=== PATIENT | female | born 1950 | race Caucasian/White ===

== ENCOUNTER 2016-11-23 07:52 | Emergency (ER) | payer BC, MEDICARE ==
[~2016-11-23] VITALS: Ht 167.6 cm; Wt 63.5 kg
[~2016-11-23 07:52] MED LIST: ACET500T33 PO; AMLO10TA4 PO; ASPI-482 PO; ATEN25TA PO; ATOR40TA PO; CALC1TAB75 PO; CLOP75TA PO; OMEG1CAP38 PO; VENL75CA PO
[2016-11-23 08:05] VITALS: BP 148/77
--- NOTE | 2016-11-23 08:16 | PHYS DOC ---
Past Medical History Past Medical History: Depression, High Cholesterol, Hypertension, [place] Past Surgical History: Cholecystectomy Alcohol Use: Rarely Drug Use: None Adult General Chief Complaint Chief Complaint: NOSEBLEED HPI HPI Patient is a 66 year old female who presents with. She states that around 2 AM she woke up with bleeding out of her right near. She states she's been holding pressure at a stop for a brief amount time it started bleeding again. She states she is on Plavix. She denies any lightheadedness dizziness nausea or vomiting. She states she normally does not have any troubles with nosebleeds. Review of Systems Review of Systems Constitutional: Denies fever or chills [] Eyes: Denies change in visual acuity, redness, or eye pain [] HENT: Denies nasal congestion or sore throat, positive for nosebleed Respiratory: Denies cough or shortness of breath [] Cardiovascular: No additional information not addressed in HPI [] GI: Denies abdominal pain, nausea, vomiting, bloody stools or diarrhea [] : Denies dysuria or hematuria [] Musculoskeletal: Denies back pain or joint pain [] Integument: Denies rash or skin lesions [] Neurologic: Denies headache, focal weakness or sensory changes [] Endocrine: Denies polyuria or polydipsia [] Current Medications Current Medications Current Medications Medications (Trade) Dose Ordered Sig/Gita Start Time Stop Time Status Last Admin Dose Admin Oxymetazoline HCl (Afrin) 2 spray 1X ONCE 11/23/16 08:30 11/23/16 08:31 DC 11/23/16 08:31 2 SPRAY Allergies Allergies Allergies Coded Allergies Type Severity Reaction Last Updated Verified povidone-iodine Allergy Intermediate 04/05/16 Yes soap Allergy Intermediate 04/05/16 Yes Physical Exam Physical Exam Constitutional: Well developed, well nourished, no acute distress, non-toxic appearance. [] HENT: Normocephalic, atraumatic, bilateral external ears normal, oropharynx moist, no oral exudates, nose normal., Blood in the right naris, unable to visualize the bleeding is coming from. Eyes: PERRLA, EOMI, conjunctiva normal, no discharge. [] Neck: Normal range of motion, no tenderness, supple, no stridor. [] Cardiovascular:Heart rate regular rhythm, no murmur [] Lungs & Thorax: Bilateral breath sounds clear to auscultation [] Abdomen: Bowel sounds normal, soft, no tenderness, no masses, no pulsatile masses. [] Skin: Warm, dry, no erythema, no rash. [] Back: No tenderness, no CVA tenderness. [] Extremities: No tenderness, no cyanosis, no clubbing, ROM intact, no edema. [] Neurologic: Alert and oriented X 3, normal motor function, normal sensory function, no focal deficits noted. [] Psychologic: Affect normal, judgement normal, mood normal. [] Current Patient Data Vital Signs Vital Signs Date Time Temp Pulse Resp B/P Pulse Ox O2 Delivery O2 Flow Rate FiO2 11/23/16 08:05 97.4 66 20 98 Room Air 97.4 EKG EKG [] Radiology/Procedures Radiology/Procedures [] Impressions: Epistasis Course & Med Decision Making Course & Med Decision Making Pertinent Labs and Imaging studies reviewed. (See chart for details) Presented with a nosebleed she use Afrin help pressure however was still bleeding in the right scruggs. We do not have any posterior Rhino Rockets and only have anterior once. I placed an anterior 1 however was still bleeding around this and the patient was not comfortable with it and requested it be removed. I watched the patient for approximate 4-1/2 hours and then was able to get a hold at ENT clinic and spoke with Dr. Sahu who is okay with the patient coming to clinic and being evaluated there. The patient's agreeable plan being discharged in stable condition at this time to follow-up with them. I instructed the to take her immediately to emergency department if the bleeding gets worse prior to arriving at the clinic. Dragon Disclaimer Dragon Disclaimer This electronic medical record was generated, in whole or in part, using a voice recognition dictation system. Departure Departure Impression: Primary Impression: Bleeding nose Disposition: 01 HOME, SELF-CARE Condition: STABLE Referrals: KIM MCGREGOR (PCP) Patient Instructions: Nosebleed Additional Instructions: You have an appointment at the [facility] ENT clinic which is on the third floor across the street from the [place] parking garage. Check-in with the ENT clinic and I spoke with guarding or vciki. KEVIN WATKINS MD Nov 23, 2016 08:16
[2016-11-23] MEDS ORDERED: OXYMETAZOLINE 0.05% NASAL SPRAY 30ML BOTTLE. NS ONE (08:30)
== END 2016-11-23 12:58 | disposition home or self-care (01) ==
LOC: ER 07:52
DX: R04.0 Epistaxis (principal); E78.00 Pure hypercholesterolemia, unspecified; I10 Essential (primary) hypertension; I25.2 Old myocardial infarction; Z79.02 Long term (current) use of antithrombotics/antiplatelets; Z88.8 Allergy status to other drugs, medicaments and biological substances; Z91.048 Other nonmedicinal substance allergy status
CPT/HCPCS: 30901; 99284-25

== ENCOUNTER → 2017-09-28 | Outpatient (CLI) | payer MEDICARE, OTHER | END | disposition home or self-care (01) | LOC: ECHO 07:49 | DX: I25.10 Atherosclerotic heart disease of native coronary artery without angina pectoris (principal); I37.1 Nonrheumatic pulmonary valve insufficiency; I31.3 Pericardial effusion (noninflammatory) | CPT/HCPCS: 93306 ==

== ENCOUNTER → 2018-06-25 | Outpatient (CLI) | payer MEDICARE ==
--- NOTE | 2018-06-25 10:11 | RAD ---
MR#: [id number] Date of Study: 06/25/2018 Ordering Physician: EMMANUELLE BONILLA, Referring Physician: EMMANUELLE BONILAL, Tech: Igor Bai MBA, RDMS, RVT, RDCS, RTR APPROVED REPORT Patient Location: OUT-PATIENT Indications PAD VELOCITY AND DOPPLER WAVEFORM ANALYSIS RIGHT cm/secWaveformSeverity LEFT cm/secWaveform Severity dCFA 146.0TriphasicdCFA 167.0Triphasic Prof Fem Art. 62.0TriphasicProf Fem Art. 77.0Triphasic Fem Art Prox. 128.0TriphasicFem Art Prox. 153.0Triphasic Fem Art Mid. 90.0TriphasicFem Art Mid. 111.0Triphasic Fem Art Dist. 90.0BiphasicFem Art Dist. 131.0Biphasic Pop Art(Fossa) 72.0BiphasicPop Art([place]) 99.0Biphasic PAINT POURER Prox. 86.0BiphasicPTA Prox. 79.0Biphasic PAINT POURER Dist. 81.0BiphasicPTA Dist. 60.0Biphasic Per Art Mid. 48.0BiphasicPer Art Mid. 63.0Biphasic KALPANA Prox. 54.0BiphasicATA Prox. 74.0Biphasic DPA 38BiphasicDPA 95Biphasic Findings Grayscale images of the bilateral lower extremity arterial vessels reveal minimal intimal hyperplasia and mild diffuse atherosclerosis. Spectral waveforms and color Doppler throughout the arterial syste m do not reveal any evidence of high-grade stenosis. Velocities are grossly within normal limits thro ughout the arterial tree. Spectral waveforms are mostly triphasic and biphasic. Critical Notification Critical Value: No <Conclusion> No significant lower extremity arterial stenosis by ultrasound criteria Signed by : Varghese Cheng, Electronically Approved : 06/25/2018 10:09:33
== END | disposition home or self-care (01) ==
LOC: US 06:27
PROVIDERS: ATTEND Internal Medicine Cardiovascular Disease
DX: I70.293 Other atherosclerosis of native arteries of extremities, bilateral legs (principal); I25.10 Atherosclerotic heart disease of native coronary artery without angina pectoris; I10 Essential (primary) hypertension; E78.00 Pure hypercholesterolemia, unspecified; I25.2 Old myocardial infarction; Z88.8 Allergy status to other drugs, medicaments and biological substances
CPT/HCPCS: 93925

== ENCOUNTER → 2018-06-28 | Outpatient (CLI) | payer MEDICARE, OTHER ==
[~2018-06-28] MED LIST changes: +REGADENOSON 0.4 MG/5 ML DISP.SYRIN. IV ONE
--- NOTE | 2018-06-28 10:52 | RAD ---
MR#: [id number] Date of Study: 06/28/2018 Ordering Physician: EMMANUELLE BONILLA, Referring Physician: SYDNI PICKARD Tech: ROSANA Deal APPROVED REPORT Test Type: Pharmacological Stress Nurse/Tech: Kristal Estrada R.N. Test Indications: CAD, Stents Cardiac History: Family history, Hypertension, [place], 3 stents Medications: See Electronic Medical Record Medical History: See Electronic Medical Record Resting ECG: NSR with rare PVC Resting Heart Rate: 61 bpm Resting Blood Pressure: 159/75mmHg Pretest Chest Pain: No chest pain Nurse/Tech Notes S1S2, lungs sound clear Consent: The procedure was explained to the patient in lay terms. Informed consent was witnessed. Gigi eout was entered into [employer]. History and Stress Test performed by Kristal Estrada R.N. Pharm. Details Pharmacologic stress testing was performed using 0.4mg per 5ml of regadenoson given intravenously ove r 7-10 seconds. Stress Symptoms Dyspnea POST EXERCISE Reason for Termination: Infusion complete Target HR: 130 Max HR: 99 bpm Max Blood Pressure: 158/63mmHg Blood Pressure response to exercise: Normal blood pressure response during stress. Chest Pain: No. Arrhythmia: No. ST Change: No. INTERPRETATION Stress EKG Conclusion: Baseline EKG showed sinus rhythm. No ischemic changes at peak stress. Few PVC 's without any significant arrhythmias. Imaging Protocol IMAGE PROTOCOL: Rest Tc-99m/stress Tc-99m 1 day Rest: Stress: Viability: Radiopharm.Tc99m YatbbzwkmZf70f Sestamibi Dose12.5mCi 32mCi Duration 17min. 13min. Img Date 06/28/2018 06/28/2018 Inj-Img Bqei48igx. 60min. Rest Admin Site:IV - Right HandAdministrator:ROSANA Deal Stress Admin Site: IV - Right HandAdministrator: ROSANA Deal STRESS DATA End Diast. Vol.58.0mlLVEDV index BSA32.0ml End Syst. Vol.15.0mlLVESV index BSA8.0ml Myocardial Mass99.0gEject. Ftxghzia60.0% Stress Scores Regional WT1.00Summed WT7.00 Regional WM0.00Summed WM2.00 LV Perfusion Scintigraphic images showed very small reversible defect involving the apical wall consistent with is chemia. Wall Motion Normal left ventricle systolic function with ejection fraction calculated at 74%. LV Perf. Quant 17 Seg. SSS2.00 17 Seg. SRS1.00 17 Seg. SDS1.00 Stress Defect Extent (% LAD)0.00Rest Defect Extent (% LAD)0.00Rev. Defect Extent (% LAD)0.00 Stress Defect Extent (% LCX) 5.00Rest Defect Extent (% LCX)7.50Rev. Defect Extent (% LCX)0.00 Stress Defect Extent (% RCA)0.00Rest Defect Extent (% RCA)0.00Rev. Defect Extent (% RCA)0.00 Stress Defect Extent (% LAURA)0.90Rest Defect Extent (% LAURA)1.30Rev. Defect Extent (% LAURA)0.00 Conclusion 1. Regadenoson cardioisotope stress test showed very small amount of apical wall ischemia. 2. Normal left ventricular systolic function with ejection fraction calculated at 74%. 3. Low risk for cardiac events. Signed by : Emmanuelle Bonilla, Electronically Approved : 06/28/2018 10:51:16
== END | disposition home or self-care (01) ==
LOC: NM 12:12
PROVIDERS: ATTEND Internal Medicine Cardiovascular Disease
DX: I25.10 Atherosclerotic heart disease of native coronary artery without angina pectoris (principal); I10 Essential (primary) hypertension; Z82.49 Family history of ischemic heart disease and other diseases of the circulatory system
CPT/HCPCS: 78452; 93017; 96374; 96375; 96376; A9500; J2785

== ENCOUNTER 2018-07-16 06:21 | Outpatient (CLI) | payer MEDICARE, OTHER ==
[~2018-07-16] VITALS: Ht 167.6 cm; Wt 72.6 kg
[2018-07-16] VITALS (10 sets, daily range): BP systolic 106–144; BP diastolic 56–71
[~2018-07-16 06:21] MED LIST changes: -REGADENOSON 0.4 MG/5 ML DISP.SYRIN. IV ONE
[2018-07-16] MEDS ORDERED: LIDOCAINE 1% PF 2 ML VIAL. ONE (07:07)
[2018-07-16] MEDS ORDERED: IODIXANOL 320 MG/ML 100 ML VIAL. ONE (07:07)
[2018-07-16 07:17] LABS: HEMATOCRIT 45.1 % (36.0-47.0); HEMOGLOBIN 15.4 g/dL (12.0-15.5); RED BLOOD COUNT 5.06 x10^6/uL (3.50-5.40); RED CELL DISTRIBUTION WIDTH 14.4 % (11.5-14.5); WHITE BLOOD COUNT 9.8 x10^3/uL (4.0-11.0)
[2018-07-16 07:19] LABS: CALCIUM 9.4 mg/dL (8.5-10.1); CREATININE 0.8 mg/dL (0.6-1.0); GFR 71.5; POTASSIUM 3.7 mmol/L (3.5-5.1)
[2018-07-16 07:41] LABS: PROTHROMBIN TIME PATIENT 11.8 SEC (11.7-14.0)
[2018-07-16] MEDS ORDERED: fentaNYL PF VIAL 100 MCG/2 ML VIAL ONE (08:09)
[2018-07-16] MEDS ORDERED: MIDAZOLAM HCL/PF 2 MG/2 ML VIAL. ONE (08:10)
[2018-07-16] MEDS ORDERED: HEPARIN for IV BOLUS 10,000 UNIT/10 ML VIAL. ONE (08:10)
[2018-07-16] MEDS ORDERED: NITROGLYCERIN 200 MCG/2 ML SYRINGE FOR CATH/VASC LAB. ONE (08:10)
[2018-07-16] MEDS ORDERED: VERAPAMIL 5 MG/2 ML VIAL. ONE (08:10)
[2018-07-16] MEDS ORDERED: CONTRAST GIVEN. MC PRN (08:45)
[2018-07-16] MEDS ORDERED: HEPARIN for IV BOLUS 10,000 UNIT/10 ML VIAL. IART ONE (08:45)
[2018-07-16] MEDS ORDERED: VERAPAMIL 5 MG/2 ML VIAL. IART ONE (08:45)
[2018-07-16] MEDS ORDERED: fentaNYL PF VIAL 100 MCG/2 ML VIAL IV ONE (08:45)
[2018-07-16] MEDS ORDERED: LIDOCAINE 1% PF 2 ML VIAL. INJ ONE (08:45)
[2018-07-16] MEDS ORDERED: MIDAZOLAM HCL/PF 2 MG/2 ML VIAL. IV ONE (08:45)
[2018-07-16] MEDS ORDERED: IODIXANOL 320 MG/ML 100 ML VIAL. IART ONE (08:45)
[2018-07-16] MEDS ORDERED: NITROGLYCERIN 200 MCG/2 ML SYRINGE FOR CATH/VASC LAB. IART ONE (08:45)
--- NOTE | 2018-07-16 09:23 | PDOC ---
MODERATE SEDATION ASSESSMENT RISKS/ALTERNATIVES Risks/Alternatives Risks and alternatives of this type of sedation and procedure discussed with: RISK/ALTERNATIVES: Patient H & P ON CHART H & P H & P on chart and reviewed for co-morbid conditions and appropriate labs. H&P ON CHART: Yes STATUS PREG STATUS ASSESSED: N/A MEDS/ALLERGIES REVIEWED Meds/Allergies Reviewed Medications and Allergies including time and route of recently administered narcotics and sedatives. MEDS/ALLERGIES REVIEWED: Yes ASA RATING ASA RATING: II AIRWAY ASSESSMENT Airway Assessment Airway patency, oral function limitations, presence of caps, crowns, dentures, partials, and ability to extend neck assessed. AIRWAY ASSESSMENT: Yes MALLAMPATI SCORE MALLAMPATI SCORE: II PRE-SEDATION ASSESSMENT PRE-SEDATION ASSESSMENT: Yes EMMANUELLE BONILLA MD Jul 16, 2018 09:23
--- NOTE | 2018-07-16 09:29 | CARD ---
MR#: [id number] Date of Study: 07/16/2018 Ordering Physician: EMMANUELLE BONILLA Referring Physician: EMMANUELLE BONILLA Tech: RT iNck (R) APPROVED REPORT Technologist: Amber Bangura RT (R) Nurse: Eli Cade R.N. Procedure(s) performed: Left heart catheterization, selective coronary angiography and left ventricul ography via right transradial approach Moderate sedation: 22 minutes INDICATION The indication(s) include : Unstable angina, positive stress test. PROCEDURE NARRATIVE After explaining the risks, benefits and alternative options, informed consent was obtained from aranza ent. Patient was brought to the cardiac Instrument Maker Apprentice and right wrist was prepped and draped in the usual fashion after confirming a positive modified Eder's test. Arterial access was obtained in the righ t radial artery and a 6 [place] sheath was inserted. 6 [place] Piotr catheter was used to perform benedict ective angiography of the left and right coronary arteries. 6 [place] pigtail catheter was used to pe rform left ventriculography. Patient tolerated the procedure well. Hemostasis was achieved using TR band. There were no immediate complications. The following findings were noted. FINDINGS 1. Hemodynamics: Left ventricular end-diastolic pressure of 16 mmHg. pullback gradient of 10 mmHg ac ross the aortic valve. 2. Left ventriculography: Normal left ventricle systolic function with ejection fraction estimated at 60%. No significant mitral regurgitation seen. 3. Coronary angiography: a. The left main coronary artery arose from the left sinus of Valsalva, gave rise to the left anteri or descending and left circumflex arteries and did not show any significant stenosis. b. The left anterior descending artery did not show any significant stenosis. c. The left circumflex artery showed widely patent previously placed stent in a large obtuse margina l branch. d. The right coronary artery arose from the right sinus of Valsalva and did not show any significant stenosis. Conclusion 1. No significant coronary artery disease with widely patent previously placed stent in the obtuse m arginal branch of left circumflex artery 2. Normal left ventricle systolic function with ejection fraction estimated at 60%. Recommendations Medical Therapy Signed by : Emmanuelle Bonilla, Electronically Approved : 07/16/2018 09:28:35
[2018-07-16] MEDS ORDERED: NITROGLYCERIN SUBLINGUAL 0.4 MG BOTTLE OF 25. SL PRN (09:30)
[2018-07-16] MEDS ORDERED: IV 1/2 NORMAL SALINE 1,000 ML IV SCH (09:30)
== END 2018-07-16 11:30 | disposition home or self-care (01) ==
LOC: CCL 06:21
PROVIDERS: ATTEND Internal Medicine Cardiovascular Disease
DX: I20.0 Unstable angina (principal); Z88.8 Allergy status to other drugs, medicaments and biological substances; Z91.048 Other nonmedicinal substance allergy status
CPT/HCPCS: 36415; 80048; 85027; 85610; 93458; 99152; C1769; C1892; J1644; J2250; J3010; J3490; Q9967

== ENCOUNTER → 2019-08-07 | Outpatient (CLI) | payer MEDICARE, OTHER ==
[2018-07-16 11:02] VITALS: BP 113/67
--- NOTE | 2019-08-07 16:33 | CARD ---
MR#: [id number] Date of Study: 08/07/2019 Ordering Physician: EMMANUELLE HERNANDEZ, Referring Physician: Simi PICKARD: Adry Medina APPROVED REPORT EXAM: Two-dimensional and M-mode echocardiogram with Doppler and color Doppler. Other Information Quality : AverageHR: 51bpm INDICATION CAD 2D DIMENSIONS RVDd2.7 (2.9-3.5cm)Left Atrium(2D)3.1 (1.6-4.0cm) IVSd1.2 (0.7-1.1cm)Aortic Root(2D)2.1 (2.0-3.7cm) LVDd3.9 (3.9-5.9cm)LVOT Diameter2.0 (1.8-2.4cm) PWd0.7 (0.7-1.1cm)LVDs2.9 (2.5-4.0cm) FS (%) 25.7 %SV34.4 ml LVEF(%)51.2 (>50%) Aortic Valve AoV Peak Rayray.135.1cm/sAoV VTI31.2cm AO Peak GR.7.3mmHgLVOT Peak Rayray.93.7cm/s AO Mean GR.4mmHgAVA (VMAX)2.20cm2 Mitral Valve MV E Qgoznozb88.7cm/sMV E Peak Gr.4mmHg MV DECEL [id number] A Fiaqzetc758.4cm/s MV E Mean Gr.1mmHgE/A Ratio0.7 Pulmonary Valve PV Peak Qrbjacqt22.5cm/s Tricuspid Valve RAP XUYTQLEN5jjNn Pulmonary Vein S1 Tpbmktac02.5cm/sD2 Etkomfqb55.4cm/s LEFT VENTRICLE The left ventricle is normal size. There is mild septal left ventricular hypertrophy. The left ventri cular systolic function is normal. The Ejection Fraction is 55-60%. There is normal LV segmental wall motion. Transmitral Doppler flow pattern is Grade I-abnormal relaxation pattern. RIGHT VENTRICLE The right ventricle is normal size. The right ventricular systolic function is normal. ATRIA The left atrium size is normal. The right atrium size is normal. The interatrial septum is intact wit h no evidence for an atrial septal defect or patent foramen ovale as noted on 2-D or Doppler imaging. AORTIC VALVE The aortic valve is thickened but opens well. Doppler and Color Flow revealed no significant aortic r egurgitation. There is no significant aortic valvular stenosis. MITRAL VALVE The mitral valve is thickened but opens well. There is no evidence of mitral valve prolapse. There is no mitral valve stenosis. Doppler and Color-flow revealed trace mitral regurgitation. TRICUSPID VALVE The tricuspid valve is not well visualized. Doppler and Color Flow revealed trace tricuspid regurgita tion. There is no tricuspid valve stenosis. PULMONIC VALVE The pulmonic valve is not well visualized. Doppler and Color Flow revealed trace to mild pulmonic eri vular regurgitation. GREAT VESSELS The aortic root is normal in size. The ascending aorta is normal in size. The IVC is normal in size a nd collapses >50% with inspiration. PERICARDIAL EFFUSION There is no pleural effusion. There is no evidence of significant pericardial effusion. Critical Notification Critical Value: No <Conclusion> The left ventricular systolic function is normal. The Ejection Fraction is 55-60%. There is normal LV segmental wall motion. Transmitral Doppler flow pattern is Grade I-abnormal relaxation pattern. Trace mitral regurgitation. Trace tricuspid regurgitation. There is no evidence of significant pericardial effusion. Signed by : Emmanuelle Hernandez, Electronically Approved : 08/07/2019 10:11:07
== END | disposition home or self-care (01) ==
LOC: ECHO 08:21
PROVIDERS: ATTEND Internal Medicine Cardiovascular Disease
DX: I37.1 Nonrheumatic pulmonary valve insufficiency (principal); I11.9 Hypertensive heart disease without heart failure; I25.10 Atherosclerotic heart disease of native coronary artery without angina pectoris
CPT/HCPCS: 93306

== ENCOUNTER → 2020-02-05 | Outpatient (CLI) | payer MEDICARE, OTHER ==
[2018-07-16 11:02] VITALS: BP 113/67
[~2020-02-05] MED LIST changes: +REGADENOSON 0.4 MG/5 ML DISP.SYRIN. IV ONE
--- NOTE | 2020-02-05 12:10 | RAD ---
MR#: [id number] Date of Study: 02/05/2020 Ordering Physician: EMMANUELLE BONILLA Referring Physician: SYDNI PICKARD Tech: RT Lesly Pritchett) (N) APPROVED REPORT Test Type: Pharmacological Stress Nurse/Tech: RT Lesly Pritchett) (N) Cardiac History: stents about 6 years ago Medications: see EHR Medical History: COPD, Hypertension, ex smoker Resting ECG: sinus rhythm Resting Heart Rate: 59 bpm Resting Blood Pressure: 127/71mmHg Nurse/Tech Notes Consent: The procedure was explained to the patient in lay terms. Informed consent was witnessed. Gigi eout was entered into [employer]. History and Stress Test performed by RT Lesly Pritchett) (N) Pharm. Details Pharmacologic stress testing was performed using 0.4mg per 5ml of regadenoson given intravenously ove r 7-10 seconds. POST EXERCISE Reason for Termination: Infusion complete Max HR: 85 bpm Max Blood Pressure: 124/64mmHg INTERPRETATION Stress EKG Conclusion: No acute changes were noted. Imaging Protocol IMAGE PROTOCOL: Rest Tc-99m/stress Tc-99m 1 day Rest: Stress: Viability: Radiopharm.Tc99m MyglugekjAb44o Sestamibi Utuy92fAv 32.4mCi Duration 15min. 10min. Img Date 02/05/2020 02/05/2020 Inj-Img Znmv07jkx. 60min. Rest Admin Site:IV - Right AntecubitalAdministrator:RT Lesly Pritchett)(N) Stress Admin Site: IV - Right AntecubitalAdministrator: RT Lesly Pritchett)(N) STRESS DATA End Diast. Vol.57.0mlAv. Heart Rate59.0bpm End Syst. Vol.5.0mlCO Index BSA0.0L/min Myocardial Ttvk193.0gEject. Yxlybsqd21.0% Stress Rates Pk. Fill Rate3.02EDV/secLVtime Pk. Fill 194.25msec Pk. Empty Rate3.34ESV/secLVtime Pk. Yonka036.97msec 1/3 Pk. Fill1.38EDV/sec Stress Scores Regional WT0.00Summed WT0.00 Regional WM0.00Summed WM0.00 The rest and stress images show normal perfusion, normal contraction and thickening. LV Perf. Quant 17 Seg. SSS0.00 17 Seg. SRS0.00 17 Seg. SDS0.00 Stress Defect Extent (% LAD)0.00Rest Defect Extent (% LAD)0.00Rev. Defect Extent (% LAD)0.00 Stress Defect Extent (% LCX) 0.00Rest Defect Extent (% LCX)0.00Rev. Defect Extent (% LCX)0.00 Stress Defect Extent (% RCA)0.00Rest Defect Extent (% RCA)0.00Rev. Defect Extent (% RCA)0.00 Stress Defect Extent (% LAURA)0.00Rest Defect Extent (% LAURA)0.00Rev. Defect Extent (% LAURA)0.00 Other Information Quality:Good Risk Assessment: Low Risk Conclusion 1. No evidence of EKG changes with stress testing. 2. Normal perfusion at stress/rest. 3. Low risk study. 4. EF > 60%. Signed by : Varghese Cheng, Electronically Approved : 02/05/2020 12:09:55
== END | disposition home or self-care (01) ==
LOC: NM 07:25
PROVIDERS: ATTEND Internal Medicine Cardiovascular Disease
DX: I25.10 Atherosclerotic heart disease of native coronary artery without angina pectoris (principal)
CPT/HCPCS: 78452; 93017; A9500; J2785

== ENCOUNTER → 2020-09-04 | Outpatient (CLI) | payer MEDICARE, OTHER ==
[2018-07-16 11:02] VITALS: BP 113/67
[~2020-09-04] MED LIST changes: +CALC-627 PO; -CALC1TAB75 PO; -REGADENOSON 0.4 MG/5 ML DISP.SYRIN. IV ONE
--- NOTE | 2020-09-04 13:32 | CARD ---
MR#: [id number] Date of Study: 09/04/2020 Ordering Physician: EMMANUELLE HERNANDEZ, Referring Physician: Simi PICKARD: Baljit Kate [facility] APPROVED REPORT EXAM: Two-dimensional and M-mode echocardiogram with Doppler and color Doppler. Other Information Quality : AverageHR: 54bpm Rhythm : NSR, Bradycardia INDICATION Cardiac Disease: CAD 2D DIMENSIONS RVDd2.3 (2.9-3.5cm)Left Atrium(2D)3.1 (1.6-4.0cm) IVSd1.3 (0.7-1.1cm)Aortic Root(2D)3.5 (2.0-3.7cm) LVDd3.8 (3.9-5.9cm)PWd1.3 (0.7-1.1cm) LA Eonszs30 (18-58mL)LVDs2.5 (2.5-4.0cm) FS (%) 34.5 %SV40.3 ml LVEF(%)64.3 (>50%) Aortic Valve AoV Peak Rayray.131.5cm/Jerson Peak GR.6.9mmHg LVOT Peak Rayray.84.5cm/s Mitral Valve MV E Paolktay73.6cm/sMV DECEL DBBI228jx MV A Qehagwhd043.4cm/sE/A Ratio0.8 MV A Gcpbjsgl946mo Pulmonary Valve PV Peak Wmafxmko78.7cm/s Tricuspid Valve TR P. Suaubzgb925bw/sTR Peak Gr.29mmHg Pulmonary Vein S1 Iflahzyb62.7cm/sD2 Yaeqsjes53.5cm/s PVa qvogrexz707cjvr LEFT VENTRICLE The left ventricle is normal size. There is mild concentric left ventricular hypertrophy. The left ve ntricular systolic function is normal. The Ejection Fraction is 60-65%. There is normal LV segmental wall motion. Transmitral Doppler flow pattern is Grade I-abnormal relaxation pattern. RIGHT VENTRICLE The right ventricle is normal size. There is normal right ventricular wall thickness. The right ventr icular systolic function is normal. ATRIA The left atrium size is normal. The right atrium size is normal. The interatrial septum is intact wit h no evidence for an atrial septal defect or patent foramen ovale as noted on 2-D or Doppler imaging. AORTIC VALVE The aortic valve is normal in structure and function. No aortic regurgitation is present. There is no aortic valvular stenosis. There is no aortic valvular vegetation. MITRAL VALVE The mitral valve is normal in structure and function. There is no evidence of mitral valve prolapse. There is no mitral valve stenosis. Doppler and Color-flow revealed trace mitral regurgitation. TRICUSPID VALVE The tricuspid valve is normal in structure and function. Doppler and Color Flow revealed mild tricusp id regurgitation with PAP of 36 mmHg. There is no tricuspid valve prolapse or vegetation. There is no tricuspid valve stenosis. PULMONIC VALVE The pulmonary valve is normal in structure and function. There is no pulmonic valvular regurgitation. There is no pulmonic valvular stenosis. GREAT VESSELS The aortic root is normal in size. The ascending aorta is normal in size. The pulmonary artery is nor mal. The IVC is normal in size and collapses >50% with inspiration. PERICARDIAL EFFUSION There is no pleural effusion. There is no evidence of significant pericardial effusion. Critical Notification Critical Value: No <Conclusion> The left ventricular systolic function is normal. The Ejection Fraction is 60-65%. There is normal LV segmental wall motion. Transmitral Doppler flow pattern is Grade I-abnormal relaxation pattern. Trace mitral regurgitation. Mild tricuspid regurgitation with PAP of 36 mmHg. There is no evidence of significant pericardial effusion. Signed by : Emmanuelle Hernandez, Electronically Approved : 09/04/2020 12:00:47
== END ==
LOC: ECHO 07:55
PROVIDERS: ATTEND Internal Medicine Cardiovascular Disease
DX: I07.1 Rheumatic tricuspid insufficiency (principal); I25.10 Atherosclerotic heart disease of native coronary artery without angina pectoris
CPT/HCPCS: 93306

== ENCOUNTER → 2022-02-09 | Outpatient (CLI) | payer BC, MEDICARE, OTHER ==
[2018-07-16 11:02] VITALS: BP 113/67
[~2022-02-09] MED LIST changes: +REGADENOSON 0.4 MG/5 ML DISP.SYRIN. IV ONE
--- NOTE | 2022-02-09 12:26 | CARD ---
MR#: [id number] Date of Study: 02/09/2022 Ordering Physician: EMMANUELLE BONILLA, Referring Physician: EMMANUELLE BONILLA Tech: Marisol Eddy [facility] APPROVED REPORT EXAM: Two-dimensional and M-mode echocardiogram with Doppler and color Doppler. Other Information Quality : Technically LimitedHR: 55bpm Rhythm : NSR INDICATION Dyspnea RISK FACTORS Hypertension Obesity Hyperlipidemia 2D DIMENSIONS Left Atrium(2D)2.8 (1.6-4.0cm)IVSd1.1 (0.7-1.1cm) Aortic Root(2D)2.6 (2.0-3.7cm)LVDd3.7 (3.9-5.9cm) LVOT Diameter2.3 (1.8-2.4cm)PWd1.1 (0.7-1.1cm) LVDs2.0 (2.5-4.0cm)FS (%) 46.7 % SV45.2 mlLVEF(%)78.9 (>50%) Aortic Valve AoV Peak Rayray.159.9cm/sAoV VTI33.4cm AO Peak GR.10.2mmHgLVOT Peak Rayray.103.9cm/s AO Mean GR.4mmHgAVA (VMAX)2.77cm2 Mitral Valve MV E Qbijsiaq06.4cm/sMV DECEL CESI630so MV A Puiiobit947.5cm/sE/A Ratio0.7 Pulmonary Valve PV Peak Qztilmfs949.2cm/s LEFT VENTRICLE The left ventricle is normal size. There is borderline to mild concentric left ventricular hypertroph y. The left ventricular systolic function is normal. Estimated ejection fraction 60-65%. There is no rmal LV segmental wall motion. Transmitral Doppler flow pattern is Grade I-abnormal relaxation patter n. RIGHT VENTRICLE The right ventricle is normal size. There is normal right ventricular wall thickness. The right ventr icular systolic function is normal. ATRIA The left atrium size is normal. The right atrium size is normal. The interatrial septum is intact wit h no evidence for an atrial septal defect or patent foramen ovale as noted on 2-D or Doppler imaging. AORTIC VALVE The aortic valve is normal in structure and function. Doppler and Color Flow revealed no significant aortic regurgitation. There is no significant aortic valvular stenosis. MITRAL VALVE The mitral valve is normal in structure and function. There is no evidence of mitral valve prolapse. There is no mitral valve stenosis. Doppler and Color Flow revealed no mitral valve regurgitation note d. TRICUSPID VALVE The tricuspid valve is normal in structure and function. Doppler and Color Flow revealed no tricuspid valve regurgitation noted. There is no tricuspid valve stenosis. PULMONIC VALVE The pulmonary valve is normal in structure and function. Doppler and Color Flow revealed no pulmonic valvular regurgitation. GREAT VESSELS The aortic root is normal in size. The ascending aorta is normal in size. The IVC is normal in size a nd collapses >50% with inspiration. PERICARDIAL EFFUSION There is no evidence of significant pericardial effusion. Critical Notification Critical Value: No <Conclusion> The left ventricular systolic function is normal. Estimated ejection fraction 60-65%. There is normal LV segmental wall motion. Transmitral Doppler flow pattern is Grade I-abnormal relaxation pattern. There is no evidence of significant pericardial effusion. Signed by : Emmanuelle Bonilla, Electronically Approved : 02/09/2022 12:25:48
--- NOTE | 2022-02-09 13:04 | RAD ---
MR#: [id number] Date of Study: 02/09/2022 Ordering Physician: EMMANUELLE HERNANDEZ Referring Physician: SYDNI PICKARD Tech: RT Eduin (R) (N) APPROVED REPORT Test Type: Pharmacological Stress Nurse/Tech: Valentina ALEXANDRA Test Indications: CAD Cardiac History: COPD, CAD w/ 3 stents, HTN, ASA daily Medications: See EMR Medical History: See EMR Resting ECG: SR Resting Heart Rate: 66 bpm Resting Blood Pressure: 136/82mmHg Pretest Chest Pain: No chest pain Nurse/Tech Notes Lungs clear, no SOA. S1S2 heart tones, no chest pain. Pharm. Details Pharmacologic stress testing was performed using 0.4mg per 5ml of regadenoson given intravenously ove r 7-10 seconds. Stress Symptoms No chest pain or symptoms. POST EXERCISE Reason for Termination: Infusion complete Max HR: 110 bpm Max Blood Pressure: 139/64mmHg Blood Pressure response to exercise: Normal blood pressure response during stress. Heart Rate response to exercise: normal response Chest Pain: No. Arrhythmia: No. ST Change: No. INTERPRETATION Stress EKG Conclusion: Baseline EKG showed sinus rhythm. No ischemic changes at peak stress. No arr hythmias. Imaging Protocol IMAGE PROTOCOL: Rest Tc-99m/stress Tc-99m 1 day Rest: Stress: Viability: Radiopharm.Tc99m [id number] Sestamibi [id number] 29mCi Img Date 02/09/2022 02/09/2022 Inj-Img [id number]. 60min. Rest Admin Site:IV - Left HandAdministrator:RT Eduin (R)(N) Stress Admin Site: IV - Left HandAdministrator: RT Eduin (Barrett)(N) STRESS DATA End Diast. Vol.43.0mlLVEDV index BSA23.0ml End Syst. Vol.4.0mlLVESV index BSA2.0ml Myocardial Mass82.0gEject. Echdmqty99.0% Stress Scores Regional WT0.00Summed WT0.00 Regional WM0.00Summed WM1.00 Study quality was good. Left Ventricular size was Normal at Rest and Stress. Lung uptake was . Left Ventricular ejection fraction is >80%. The rest and stress images show normal perfusion, normal contraction and thickening. LV Perf. Quant 17 Seg. SSS2.00 17 Seg. SRS0.00 17 Seg. SDS2.00 Stress Defect Extent (% LAD)0.00Rest Defect Extent (% LAD)0.00Rev. Defect Extent (% LAD)0.00 Stress Defect Extent (% LCX) 30.00Rest Defect Extent (% LCX)0.00Rev. Defect Extent (% LCX)30.00 Stress Defect Extent (% RCA)0.00Rest Defect Extent (% RCA)0.00Rev. Defect Extent (% RCA)0.00 Stress Defect Extent (% LAURA)5.20Rest Defect Extent (% LAURA)0.00Rev. Defect Extent (% LAURA)5.20 Conclusion 1. Regadenoson cardioisotope stress test did not show any evidence of ischemia or infarct. 2. Normal left ventricular systolic function with ejection fraction calculated at >80%. 3. Low risk for cardiac events. Signed by : Emmanuelle Hernandez, Electronically Approved : 02/09/2022 13:04:03
== END ==
LOC: NM 07:41
PROVIDERS: ATTEND Internal Medicine Cardiovascular Disease
DX: I51.7 Cardiomegaly (principal); I25.10 Atherosclerotic heart disease of native coronary artery without angina pectoris
CPT/HCPCS: 78452; 93017; 93306; A9500; J2785; C8929